=== PATIENT | female | born 1995 | race Caucasian/White ===

== ENCOUNTER → 2020-03-30 | Outpatient (CLI) | payer OTHER ==
--- NOTE | 2020-03-30 15:32 | XR ---
EXAMINATION TYPE: XR lumbar spine 2 or 3V DATE OF EXAM: 03/30/2020 COMPARISON: None HISTORY: Arthritis pain TECHNIQUE: Three-view lumbar spine FINDINGS: There 5 lumbar-type vertebral bodies. Pedicles are intact. Disc heights are preserved. Vert ebral body heights are preserved. Alignment is normal. IMPRESSION: 1. Normal three-view lumbar spine
--- NOTE | 2020-03-30 15:35 | XR ---
EXAMINATION TYPE: XR Hip Complete LT DATE OF EXAM: 03/30/2020 COMPARISON: None HISTORY: Arthritis pain TECHNIQUE: 2 view left hip FINDINGS: Femoral head articulates with the acetabulum. Joint spaces preserved. No acute fractures ar e evident. Note is made of some sacroiliac joint on left. IMPRESSION: 1. Normal 2 view left hip. 2. Some degenerative change noted at the inferior left sacroiliac joint.
--- NOTE | 2020-03-30 15:36 | XR ---
EXAMINATION TYPE: XR knee complete LT DATE OF EXAM: 03/30/2020 COMPARISON: None HISTORY: Arthritis, pain TECHNIQUE: Three-view left knee FINDINGS: Joint spaces are preserved. No joint effusion is evident. No acute fracture or dislocation is evident. IMPRESSION: 1. Normal three-view left knee
== END | disposition home or self-care (01) ==
LOC: RADXRMAIN 14:58
PROVIDERS: ATTEND Family Medicine
DX: M53.3 Sacrococcygeal disorders, not elsewhere classified (principal); M25.562 Pain in left knee; M25.552 Pain in left hip
CPT/HCPCS: 72100; 73502

== ENCOUNTER 2022-05-09 13:35 | Outpatient (CLI) | payer BC ==
[2022-05-09] MEDS ORDERED: ONDANSETRON 4 MG/2 ML VIAL IVP STA (14:08)
[2022-05-09] MEDS ORDERED: DEXTROSE 5%-LACTATED RINGERS 1,000 ML IV SCH (14:15)
[2022-05-09] MEDS ORDERED: LACTATED RINGERS 1,000 ML IV ONE (14:15)
[2022-05-09 18:24] VITALS: BP 114/75; PULSE 94; RESP 17; TEMP 96.9
--- NOTE | 2022-05-12 09:00 | P.MSEPDOC ---
Presenting Problems - Arrival Data Date of Arrival on Unit: 05/09/22 Time of Arrival on Unit: 13:35 Mode of Transport: Ambulatory - Complaint OB-Reason for Admission/Chief Complaint: Acute Nausea/Vomiting Comment: pt presents to triage for nausea and vomiting since this morning, states she has been unabe to keep anything down Medical History - Information : 3 Para: 2 Term: 2 : 0 Abortions: Spontaneous or Elective: 0 Number of Living Children: 2 - Gestational Age Gestational Age by HAYDEE (wks/days): 36 Weeks and 6 Days Review of Systems - Review of Systems Constitutional: No problems Breast: No problems ENT: No problems Cardiovascular: No problems Respiratory: No problems Gastrointestinal: No problems Genitourinary: No problems Musculoskeletal: No problems Neurological: No problems Skin: No problems Vital Signs - Temperature Temperature: 96.9 F Temperature Source: Axillary - Pulse Right Brachial Pulse Rate: 94 Pulse Assessment Method: Automatic Cuff - Respirations Respiratory Rate: 17 Oxygen Delivery Method: Room Air O2 Sat by Pulse Oximetry: 100 - Blood Pressure Right Arm Blood Pressure: 114/75 Blood Pressure Mean: 88 Blood Pressure Source: Automatic Cuff Medical Screen Scoring - Cervical Exam Dilation (cm): 0.5 Effacement (%): 50 - Uterine Contractions Frequency From (mins): 1 Frequency To (mins): 3 Duration From (seconds): 40 Duration To (seconds): 50 Intensity: Mild Resting: Soft to palpation - Assessment - Baby A Baseline FHR: 135 Heart Rate - NICHD Category: Category I (Normal) NST: Reactive Physician Notification - Physician Notified Physician Notified Date: 05/09/22 Physician Notified Time: 13:58 Physician: Inessa Villarreal New Order Received: Yes - Notification Comment Comment: pt given 1 bag of D5LR and 1 bag of LR per iv, and a dose of zofran, pt was feeling better, no vomiting while in triage, voided x 1 while in triage, pt discharged home with instructions to call office to schedule follow up appointment Maternal Triage Index - Stat/Priority 1 Stat Priority 1: No - Urgent/Priority 2 Urgent Priority 2: No - Prompt/Priority 3 Prompt Priority 3: Yes Criteria Met for Priority 3: pt presents to triage for nausea and vomiting since this morning, states she has been unabe to keep anything down Disposition - Disposition OB Disposition: Physician follow up in office, Triage, Discharge to home, Written follow up instructions reviewed Discharge Date: 05/09/22 Discharge Time: 16:30 I agree with the RN Medical Screening Exam: Yes Case reviewed; plan agreed upon as documented in EMR&OBIX.: Yes Diagnosis: LATE VOMITING OF
== END 2022-05-09 16:30 | disposition home or self-care (01) ==
LOC: FBPOP 13:35
PROVIDERS: ATTEND Obstetrics & Gynecology
DX: O21.2 Late vomiting of pregnancy (principal); Z3A.36 36 weeks gestation of pregnancy
CPT/HCPCS: 59025; 99214; 96361; 96374; J2405

== ENCOUNTER 2022-05-16 09:15 | Outpatient (CLI) | payer BC ==
[2022-05-16 11:21] VITALS: BP 137/76; PULSE 76; RESP 16; TEMP 97.1
--- NOTE | 2022-05-17 09:03 | P.MSEPDOC ---
Presenting Problems - Arrival Data Date of Arrival on Unit: 05/16/22 Time of Arrival on Unit: 09:15 Mode of Transport: Ambulatory - Complaint OB-Reason for Admission/Chief Complaint: Other Comment: pt here with complaints of contractions. since Friday that have intensified in pain this am,. abd soft and non tender, pt denies complications with. , denies lof/vb Medical History - Information : 4 Para: 2 Term: 2 : 0 Abortions: Spontaneous or Elective: 1 Number of Living Children: 2 - Gestational Age Gestational Age by HAYDEE (wks/days): 37 Weeks and 6 Days - History Comment: pt taking adderall during Review of Systems - Review of Systems Constitutional: No problems Breast: No problems ENT: No problems Cardiovascular: No problems Respiratory: No problems Gastrointestinal: No problems Genitourinary: No problems Musculoskeletal: No problems Neurological: No problems Skin: No problems Vital Signs - Temperature Temperature: 97.1 F Temperature Source: Temporal Artery Scan - Pulse Right Brachial Pulse Rate: 76 Pulse Assessment Method: Automatic Cuff - Respirations Respiratory Rate: 16 Oxygen Delivery Method: Room Air O2 Sat by Pulse Oximetry: 98 - Blood Pressure Right Arm Blood Pressure: 137/76 Blood Pressure Mean: 96 Blood Pressure Source: Automatic Cuff Medical Screen Scoring - Cervical Exam Dilation (cm): 1.5 Effacement (%): 50 Station: -2 Membranes: Intact - Uterine Contractions Frequency From (mins): 3 Frequency To (mins): 4 Duration From (seconds): 70 Duration To (seconds): 100 Intensity: Moderate Resting: Soft to palpation - Assessment - Baby A Baseline FHR: 125 Heart Rate - NICHD Category: Category I (Normal) NST: Reactive Physician Notification - Physician Notified Physician Notified Date: 05/16/22 Physician Notified Time: 10:00 Physician: Inessa Villarreal Order Received: Yes (dc home if no cervical change noted) Maternal Triage Index - Non-Urgent/Priority 4 Non-Urgent Priority 4: Yes Criteria Met for Priority 4: pt ruled out for labor, cervix remains unchanged and pt to be dcd home Disposition - Disposition OB Disposition: Physician follow up in office, Discharge to home, Written follow up instructions reviewed Discharge Date: 05/16/22 Discharge Time: 10:50 I agree with the RN Medical Screening Exam: Yes Case reviewed; plan agreed upon as documented in EMR&OBIX.: Yes Diagnosis: FALSE LABOR BEFORE 37 COMPLETED WEEKS OF GEST, THIRD TRI
== END 2022-05-16 10:50 | disposition home or self-care (01) ==
LOC: FBPOP 09:15
PROVIDERS: ATTEND Obstetrics & Gynecology
DX: O47.1 False labor at or after 37 completed weeks of gestation (principal); Z3A.37 37 weeks gestation of pregnancy
CPT/HCPCS: 59025; 99213

== ENCOUNTER 2022-05-16 22:26 | Inpatient (IN) | payer BC ==
[2022-05-17] MEDS ORDERED: METHYLERGONOVINE 0.2 MG/ML 1 ML AMP IM PRN (00:53)
[2022-05-17] MEDS ORDERED: LIDOCAINE 0.5% (PF) 5 MG/ML (50 ML SDV) SQ PRN (00:53)
[2022-05-17] MEDS ORDERED: CARBOPROST TROMETHAMINE 250 MCG/ML 1 ML AMP IM PRN (00:53)
[2022-05-17] MEDS ORDERED: OXYTOCIN 10 UNIT/ML 1 ML VIAL IM PRN (00:53)
[2022-05-17] MEDS ORDERED: TERBUTALINE 1 MG/ML VIAL SQ PRN (00:53)
[2022-05-17] MEDS: LACTATED RINGERS 1,000 ML IV SCH ×3 (02:00→05:30)
[2022-05-17 02:14] LABS: Basophils % (A) 0 %; Eosinophils # (A) 0.1 k/uL (0-0.7); Eosinophils % (A) 1 %; HCT 31.4 % (34.0-46.0); HGB 9.8 gm/dL (11.4-16.0); Hypochromasia Marked; Lymphocytes # (A) 2.3 k/uL (1.0-4.8); Lymphocytes % (A) 20 %; MCH 26.8 pg (25.0-35.0); MCHC 31.1 g/dL (31.0-37.0); MCV 86.2 fL (80.0-100.0); Mean Platelet Volume 7.6; Monocytes # (A) 0.6 k/uL (0-1.0); Monocytes % (A) 6 %; Neutrophils # (A) 8.2 k/uL (1.3-7.7); Neutrophils % (A) 71 %; Platelet Count 302 k/uL (150-450); Poikilocytosis Slight; RBC 3.64 m/uL (3.80-5.40); RDW 14.5 % (11.5-15.5); WBC 11.5 k/uL (3.8-10.6)
[2022-05-17] MEDS ORDERED: ROPIVACAINE 5 MG/ML 20 ML AMPULE ONE (02:55)
[2022-05-17] MEDS ORDERED: fentaNYL (PF) 50 MCG/ML 5 ML AMP ONE (02:55)
[2022-05-17] MEDS ORDERED: SODIUM CHLORIDE 0.9% 100 ML BAG ONE (02:55)
[2022-05-17] MEDS ORDERED: OXYTOCIN 30 UNITS/500 ML NS 30 UNIT in SALINE 1 500ML.BAG IV SCH (05:45)
--- NOTE | 2022-05-17 08:23 | P.HPOB ---
History of Present Illness H&P Date: 05/17/22 Chief Complaint: Spontaneous amniorrhexis This is a 26-year-old female 3 para 2001 EDC 05/31/2022 at 38 weeks gestation who presented with spontaneous amniorrhexis in the triage area at 0020 hours. Fluid is said to be clear. She has having uterine contractions cons istent with early labor. Epidural has been requested and placed. Past medical history is significant for ADHD, asthma, arthritis, anemia, hypotension. Current medications Adderall 20 mg twice a day, vitamins daily, Anusol HC suppositories when necessary. ALLERGIES include penicillin to which reports a childhood reaction. Family history is negative. Reproductive history normal spontaneous vaginal deliveries 3, all unremarkable. Social history patient is , she is a former tobacco smoker, she denies alcohol or drug use. history is significant for late maternal transfer, blood type A-, rubella status immune. Urine culture, hepatitis B surface antigen, HIV testing, gonorrhea and chlamydia cultures, group B strep cultures all negative. One-hour Glucola 108. On exam patient is 5 foot 6 inches, 165 pounds, vital signs are stable and she is afebrile. The general physical exam is within normal limits. Cervix is 4 cm dilated, 80% effaced, -2 station, vertex presentation. Artificial amniorrhexis of a large 4 bag reveals light meconium-stained fluid. heart tones are not able to be auscultated after rupture of 4 bag, therefore internal scalp lead is applied. heart rate is now reassuring, in the 130s baseline with frequent accelerations consistent with reactive NST. Impression: 38 week intrauterine , early labor. Light meconium-stained fluid. All signs otherwise reassuring. Plan: Epidural per hospital protocol. Oxytocin as needed per hospital protocol. Patient's plan has been received and reviewed. Number next anticipate normal spontaneous vaginal delivery. Review of Systems Constitutional: Reports as per HPI Past Medical History Additional Past Medical History / Comment(s): ADHD History of Any Multi-Drug Resistant Organisms: None Reported Past Surgical History: No Surgical Hx Reported Past Anesthesia/Blood Transfusion Reactions: No Reported Reaction Past Psychological History: ADD/ADHD Smoking Status: Never smoker Past Alcohol Use History: None Reported Past Drug Use History: None Reported Medications and Allergies Home Medications Medication Instructions Recorded Confirmed Type Dextroamphetamine/Amphetamine 20 mg PO DAILY 05/09/22 05/16/22 History [Adderall 20 mg Tablet] Pnv 11/Iron Fum/Folic Acid/Om3 1 each PO DAILY 05/09/22 05/16/22 History [Virt-Kb Dha Softgel] Allergies Allergy/AdvReac Type Severity Reaction Status Date / Time No Known Allergies Allergy Verified 05/16/22 22:39 Exam Vital Signs Temp Pulse Resp BP Pulse Ox 05/17/22 00:53 98.0 F 85 16 127/65 98 05/16/22 22:38 98.0 F 85 16 127/65 98 Intake and Output 05/16/22 05/17/22 05/17/22 22:59 06:59 14:59 Other: Weight 74.843 kg 74.843 kg See dictation under HPI please Results Result Diagrams: 05/17/22 01:30 Abnormal Lab Results - Last 24 Hours (Table) 05/17/22 Range/Units 01:30 WBC 11.5 H (3.8-10.6) k/uL RBC 3.64 L (3.80-5.40) m/uL Hgb 9.8 L (11.4-16.0) gm/dL Hct 31.4 L (34.0-46.0) % Neutrophils # 8.2 H (1.3-7.7) k/uL Assessment and Plan Assessment: 38 week intrauterine , light meconium-stained fluid, plan reviewed, early active labor. Epidural in place. Plan: Continue close maternal and surveillance. Anticipate normal spontaneous vaginal delivery. Time with Patient: Less than 30
--- NOTE | 2022-05-17 09:05 | P.MSEPDOC ---
Presenting Problems - Arrival Data Date of Arrival on Unit: 05/17/22 Time of Arrival on Unit: 22:23 Mode of Transport: Ambulatory - Complaint OB-Reason for Admission/Chief Complaint: Possible Onset of Labor Comment: Patient presents to triage for contraction pain. Previously seen in triage this. afternoon and states she was 1.550/-2. Pain has increased to a 10/10 since previous. visit. Medical History - Information : 3 Para: 2 Term: 2 : 0 Abortions: Spontaneous or Elective: 0 Number of Living Children: 2 - Gestational Age Gestational Age by HAYDEE (wks/days): 38 Weeks and 0 Days Review of Systems - Review of Systems Constitutional: No problems Breast: No problems ENT: No problems Cardiovascular: No problems Respiratory: No problems Gastrointestinal: No problems Genitourinary: No problems Musculoskeletal: No problems Neurological: No problems Skin: No problems Vital Signs - Temperature Temperature: 98.0 F Temperature Source: Oral - Pulse Right Brachial Pulse Rate: 85 Pulse Assessment Method: Automatic Cuff - Respirations Respiratory Rate: 16 Oxygen Delivery Method: Room Air O2 Sat by Pulse Oximetry: 98 - Blood Pressure Right Arm Blood Pressure: 127/65 Blood Pressure Mean: 85 Blood Pressure Source: Automatic Cuff Medical Screen Scoring - Cervical Exam Dilation (cm): 2 Effacement (%): 70 Station: -2 Membranes: Intact - Uterine Contractions Frequency From (mins): 3 Frequency To (mins): 4 Duration From (seconds): 40 Duration To (seconds): 80 Intensity: Strong Resting: Soft to palpation - Assessment - Baby A Baseline FHR: 120 Heart Rate - NICHD Category: Category I (Normal) NST: Reactive Physician Notification - Physician Notified Physician Notified Date: 05/17/22 Physician Notified Time: 22:39 Physician: Inessa Villarreal New Order Received: Yes - Notification Comment Comment: Dr. Villarreal called with report on patient that returns to triage for. contractions. She waspreviously 1.550/-2 and now /-2. Patient states pain has. increased since previous visit and is visibly uncomfortable and yelling into a pillow. with each contraction. Dr. Villarreal orders a recheck in 1 hour. Discharge home if she makes. no cervical change, call back if patient makes cervical change. Dr. Villarreal called again at 0040 for clear fluid SROM. Patieny admitted to unit. Maternal Triage Index - Stat/Priority 1 Stat Priority 1: No - Urgent/Priority 2 Urgent Priority 2: No - Prompt/Priority 3 Prompt Priority 3: Yes Criteria Met for Priority 3: Patient presents to triage for contraction pain. Disposition - Disposition OB Disposition: Admit Discharge Date: 05/17/22 Discharge Time: 00:40 I agree with the RN Medical Screening Exam: Yes Case reviewed; plan agreed upon as documented in EMR&OBIX.: Yes Diagnosis: LOUSE-BORNE TYPHUS
[2022-05-17] MEDS ORDERED: ACETAMINOPHEN TAB 325 MG TAB PO PRN (10:37)
[2022-05-17] MEDS ORDERED: diphenhydrAMINE 25 MG CAP PO PRN (10:37)
[2022-05-17] MEDS ORDERED: diphenhydrAMINE 50 MG CAP PO PRN (10:37)
[2022-05-17] MEDS ORDERED: ZOLPIDEM 5 MG TAB PO PRN (10:37)
[2022-05-17] MEDS ORDERED: diphenhydrAMINE ELIXIR 25 MG/10 ML CUP PO PRN (10:37)
[2022-05-17] MEDS ORDERED: LANOLIN CREAM 5 GM TUBE TOPICAL PRN (10:37)
[2022-05-17] MEDS ORDERED: HYDROCORTISONE 2.5% RECTAL CREAM 30 GM TUBE RECTAL PRN (10:37)
[2022-05-17] MEDS ORDERED: diphenhydrAMINE 50 MG/ML 1 ML VIAL IVP PRN ×2 (10:37)
[2022-05-17] MEDS ORDERED: BENZOCAINE/MENTHOL SPRAY 1 GM/SPRAY AEROSOL TOPICAL PRN (10:37)
[2022-05-17] MEDS ORDERED: SIMETHICONE 80 MG CHEWABLE PO PRN (10:37)
--- NOTE | 2022-05-17 10:37 | P.PROBDLV ---
Vaginal Delivery Note - . Vaginal Delivery Note: This is a 26-year-old female 3 para 2001 EDC 05/31/2022 at 38 weeks gestation. Patient presented in active spontaneous labor from home. remarkable for blood type A-, rubella status immune, group B strep cultures negative. Please see my dictated history and physical for details. Artificial amniorrhexis revealed light meconium-stained fluid. Oxytocin was started and titrated as needed. Epidural was placed per her request. She went on to dilate to complete dilatation at 1010 hrs. Perineal body was prepped and draped in the usual sterile fashion and she began the second stage of labor at that time. With excellent maternal expulsive efforts the infant's head delivered occiput anterior and restituted accordingly. There was a nuchal cord 1 that was reduced on the perineal body. The right or anterior shoulder was delivered easily from underneath the pubic symphysis at which time the oropharynx, and nasopharynx, and external nares were all bulb suctioned. Patient was officially delivered of a liveborn female at 1022 hrs. The umbilical cord was doubly clamped and ligated, she was handed to waiting nurses for evaluation where scores of 9 and 9 at one and 5 minutes respectively were given. The placenta delivered spontaneously, it was inspected and noted to be intact, meconium-stained, trivascular cord at 1026 hrs. Uterus is then massaged. Careful inspection of the cervix, vagina, perineum, periurethral, and perirectal areas revealed no lacerations or defects. weighed 8 pounds 5.9 ounces or 3795 g. Total estimated blood loss 300 mL's. All sponge needle and enhancement counts are correct at the end of the procedure. The patient and her and daughter are allowed to begin the bonding experience in the LDR.
[2022-05-17] MEDS: IBUPROFEN 600 MG TAB PO SCH ×2 (11:02→17:49)
[2022-05-17 15:29] VITALS: RESP 16
[2022-05-17] MEDS ORDERED: Rhogam IMMUNE GLOBULIN 1,500 UNIT/1 ML IM ONE (17:48)
[2022-05-17] MEDS: SENNOSIDES-DOCUSATE SODIUM 1 EACH TAB PO SCH (19:56)
[2022-05-18] MEDS: IBUPROFEN 600 MG TAB PO SCH ×2 (00:09→06:45)
[2022-05-18] MEDS: HYDROCORTISONE SUPPOSITORY 25 MG SUPP RECTAL SCH ×2 (00:09→09:11)
--- NOTE | 2022-05-18 08:43 | P.DS ---
Providers Date of admission: 05/17/22 00:39 Expected date of discharge: 05/18/22 Attending physician: Inessa Villarreal Primary care physician: Stated None - Discharge Diagnosis(es) (1) 38 weeks gestation of Current Visit: Yes Status: Acute (2) SROM (spontaneous rupture of membranes) Current Visit: Yes Status: Acute (3) Active labor Current Visit: Yes Status: Acute Hospital Course: This is a 26-year-old 3 now para 3 that presented to labor and delivery on Thursday 05/17 just after midnight with complaints of spontaneous rupture of membranes. Patient had been receiving routine care which has been essentially uncomplicated. Patient was noted to be grossly ruptured and admitted to labor and delivery. Patient was uncomfortable at that time an epidural was placed. Patient progressed through labor eventually becoming complete and had a normal spontaneous vaginal delivery of a viable female at 1022, weight of 8 pounds 5.9 ounces with Apgars of 9 and 9. Patient has done well . On this day #1 she is ambulating and voiding without difficulty. She is tolerating a regular diet without nausea or vomiting. States her pain is well- controlled. She would like discharge home at 24 hours if possible. Patient Condition at Discharge: Good Plan - Discharge Summary Discharge Rx Participant: No New Discharge Prescriptions: No Action Dextroamphetamine/Amphetamine [Adderall 20 mg Tablet] 20 mg PO DAILY Pnv 11/Iron Fum/Folic Acid/Om3 [Virt-Kb Dha Softgel] 1 each PO DAILY Discharge Medication List Dextroamphetamine/Amphetamine [Adderall 20 mg Tablet] 20 mg PO DAILY 05/09/22 [History] Pnv 11/Iron Fum/Folic Acid/Om3 [Virt-Kb Dha Softgel] 1 each PO DAILY 05/09/22 [History] Follow up Appointment(s)/Referral(s): Cinthya Henriquez DO [Doctor of Osteopathic Medicine] - 1 Week Patient Instructions/Handouts: Vaginal Delivery (GEN), Vaginal Delivery (DC) Discharge Disposition: HOME SELF-CARE
[2022-05-18 09:00] VITALS: BP 114/67; PULSE 74; TEMP 98
[2022-05-18] MEDS: SENNOSIDES-DOCUSATE SODIUM 1 EACH TAB PO SCH (09:11)
== END 2022-05-18 12:20 | disposition home or self-care (01) | DRG 806 ==
LOC: FBPOP 22:26 → 4FBP 05-17 00:39
PROVIDERS: ADMIT Obstetrics & Gynecology; ATTEND Obstetrics & Gynecology
PROC: 4A0HXCZ Measurement of Products of Conception, Cardiac Rate, External Approach (ICD-10-PCS; principal; 2022-05-17)
PROC: 3E033VJ Introduction of Other Hormone into Peripheral Vein, Percutaneous Approach (ICD-10-PCS; principal; 2022-05-17)
PROC: 10H073Z Insertion of Monitoring Electrode into Products of Conception, Via Natural or Artificial Opening (ICD-10-PCS; principal; 2022-05-17)
PROC: 10907ZC Drainage of Amniotic Fluid, Therapeutic from Products of Conception, Via Natural or Artificial Opening (ICD-10-PCS; principal; 2022-05-17)
PROC: 10E0XZZ Delivery of Products of Conception, External Approach (ICD-10-PCS; principal; 2022-05-17)
DX: O69.81X0 Labor and delivery complicated by cord around neck, without compression, not applicable or unspecified (principal); O36.0930 Maternal care for other rhesus isoimmunization, third trimester, not applicable or unspecified; Z37.0 Single live birth; F90.9 Attention-deficit hyperactivity disorder, unspecified type; J45.909 Unspecified asthma, uncomplicated; O77.0 Labor and delivery complicated by meconium in amniotic fluid; O99.344 Other mental disorders complicating childbirth; O26.893 Other specified pregnancy related conditions, third trimester; O99.02 Anemia complicating childbirth; D64.9 Anemia, unspecified; M19.90 Unspecified osteoarthritis, unspecified site; O99.52 Diseases of the respiratory system complicating childbirth; Z3A.38 38 weeks gestation of pregnancy; Z87.891 Personal history of nicotine dependence; Z88.0 Allergy status to penicillin
CPT/HCPCS: 59025; 84112; 85025; 85461; 86850; 86870; 86880; 86900; 86901; 99213